=== PATIENT | female | born 1980 | race Caucasian/White ===

== ENCOUNTER → 2020-12-20 13:26 | Outpatient (CLI) | payer OTHER, SELFPAY ==
--- NOTE | 2020-12-20 09:10 | EMB_PTH ---
PATIENT: EVERETT MELVNI LOC: [facility] U#:[id number] AGE/SX: 44/F ROOM: RE12/20/[address]: Dr. Ravindra Altamirano MD : 1980 BED: DIS: SPEC #: [id number] RECD: 12/21/20 09:43 STATUS: OCTAVIO CRYSTAL #: [id number] DAMARI: 12/20/20 09:[address]: Ravindra Altamirano DEPT: SURGICAL PATHOLOGY RECD BY: Augusta Russell Tissues: Endometrium, NOS Procedures: Surgery Specimen Level IV HEADER OPERATION: Endometrial biopsy PRE-OP DIAGNOSIS: Menorrhagia, abnormal uterine bleeding TISSUE SUBMITTED: Endometrial biopsy MICROSCOPIC DIAGNOSIS Endometrium, biopsy: Secretory endometrium. AM:kaylee 12/22/2020 MICROSCOPIC DESCRIPTION Slides are reviewed. GROSS DESCRIPTION Received in fixative is one container labeled with the patient's name and designated endometrial biopsy. The specimen consists of multiple irregular and elongated fragments of whaley tissue that in aggregate measure 2.5 x 2.2 x 0.2 cm. The specimen is totally submitted in one cassette. / AM:kaylee 12/21/20 TC:5 CPT: 92525
== END ==
PROVIDERS: Visit Provider Obstetrics & Gynecology
DX: N92.0 Excessive and frequent menstruation with regular cycle (principal)
CPT/HCPCS: 88305

== ENCOUNTER 2021-01-09 06:02 | Day surgery (SDC) | payer OTHER, SELFPAY ==
[2020-12-28 15:20] LABS: Hematocrit 35.8 % (37-47); Hemoglobin 11.4 g/dL (12.0-15.0); Mean Corp Hgb Conc 31.8 g/dL (32-36); Mean Corpuscular Hgb 27.7 pg (27.0-32.0); Mean Corpuscular Volume 87.1 fL (81-99); Mean Platelet Vol. 9.3 fl (6.2-12.0); Platelet Count 280 K/mm3 (150-450); RBC Distribution Width CV 13.4 % (11.6-14.6); RBC Distribution Width SD 42.6 fl (35.1-43.9); Red Blood Count 4.11 M/mm3 (4.2-5.4); White Blood Count 6.1 K/mm3 (4.4-11.0)
[2020-12-28 15:26] LABS: Prothrombin Time (Protime)PT. 12.6 SECONDS (11.7-14.9)
[2020-12-28 15:27] LABS: Partial Thromboplast Time 30.8 Seconds (24.1-36.2)
[2020-12-28 15:36] LABS: hCG Titer Quant., Serum < 1 mIU/mL (1-3)
--- NOTE | 2021-01-08 10:54 | HP.PCM_ITS ---
History and Physical Date of Admission: 01/09/21 Surgical History and Physical Nancy Sena, a 40 year old female 2 0 0 0 2, presents for HTA, Hysteroscopy and D and C on January 09, 2021 at 7:30. -- Heavy menses -- Menorrhagia/mid cycle spotting which began years ago and now worsening. Nancy claims it started with menses and has been present with menses for yrs. It occurs with menses. Marariea characterizes the quality cramping. Severity is moderate but now worsening; U/S and EMBx ok. MEDICATIONS HISTORY: Patient is also takin. Zoloft 100 mg tablet, 1 qd ALLERGIES: NKDA Illnesses - Anxiety Accidents - None Hospitalizations - Childbirth Review of Systems: GENERAL - Denies fever, or chills SKIN - Denies skin changes EYES - Denies visual changes EARS - Denies difficulty hearing NOSE - Denies nasal congestion or bleeding MOUTH - Denies sore throat or difficulty swallowing NECK - Denies pain or swelling RESPIRATORY - Denies shortness of breath or wheezing CARDIOVASCULAR - Denies palpitations or chest pain GASTROINTESTINAL - Denies nausea, vomiting, diarrhea, constipation GENITOURINARY - Denies dysuria, frequency of urination, incontinence of urine MUSCULOSKELETAL - Denies joint or muscle pain NEUROLOGICAL - Denies localized numbness or weakness PSYCHIATRIC - Denies depression or anxiety ENDOCRINE - Denies heat or cold intolerance, weight loss or gain HEMATO-IMMUNOLOGIC - Denies excesive bleeding with cuts SOCIAL HISTORY: Alcohol Use - wine daily Smoking - Never Diet - Does not eat much meat Lifestyle - Exercise - active and walking Seat Belt Use - always Employer - [employer] 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 Paternal Grandmother: Breast cancer. MENSTRUAL HISTORY: LMP Known?- yesAmount/Duration - 5-6 DAYS, Regularity - Regular, Frequency - 27 days, LMP - 12/26/20, Age Onset Menarche - 10 PAST PREGNANCIES: Total Pregnancies - 2; Full Term Pregnancies - 2; Premature - 0; Abortions, Induced - 0; Abortions, Spontaneous - 0; Ectopics - 0; Multiple Births - 0; Living Children - 2 SURGICAL HISTORY: 1. [place] Teeth extraction 2013 PHYSICAL EXAM BP- 130/80 Sitting, Right arm, regular cuff Weight- 146.78203 lbs Height- 63.5 inch BMI:25.51 CONSTITUTIONAL - NAD, well nourished, and well developed SKIN - No rash, lesions, or ulcers HEENT - Normocephalic, PERRLA, EOMI NECK - no nodes, no nuchal rigidity and thyroid normal size and texture LYMPH NODES - Palpation of lymph nodes in neck and groins within normal limits ABDOMEN - Without hepatosplenomegaly, distention, masses, rebound, or guarding; normal bowel sounds, no hernias EXTREMITIES - No edema or calf tenderness NEUROLOGICAL - Cranial nerves II-XII grossly intact PSYCHIATRIC - A and O to time, place, person, mood and affect External Genitial Vagina - non-tender without lesions Urethra/Urethral Meatus - non-tender Bladder - non-tender Vagina - vaginal odom are pink and moist without loss of rugae and no evidence of atropy Cervix - without cervical motion tenderness and has normal size and features without evident lesions Uterus - 5-6 cm in size, mobile and nontender Adnexa - clear without massess or tenderness ASSESSMENT/PLAN: 1. Premenopausal Menorrhagia Reviewed pelvic u/s results which shows posterior fibroid. Will likely benefit from ablation. EMBx benign. Declines medical treatment. Scheduled for H/S, D and C and HTA on 01/09/21. Discussed procedure and RBAs at length and all questions answered.
--- NOTE | 2021-01-09 | EMB_PTH ---
PATIENT: EVERETT MELVIN LOC: [facility] [place] U[place][id number] AGE/SX: 40/F ROOM: RE01/09/[address]: Dr. Maurice Sousa MD : 1980 BED: DIS: 01/09/2021 SPEC #: [id number] RECD: 01/09/21 11:22 STATUS: OCTAVIO RELety #: [id number] DAMARI: 01/09/21 00:[address]: Maurice Sousa DEPT: SURGICAL PATHOLOGY RECD BY: Rey Loo ENTERED: 01/09/21 11:23 SP TYPE: ENDOM BX/C OTHR DR: NENA Hood Tissues: Endometrium, NOS Procedures: Surgery Specimen Level IV HEADER OPERATION: Hysteroscopy, D & C hydroablation PRE-OP DIAGNOSIS: Heavy menses, menorrhagia TISSUE SUBMITTED: Endometrial curettings MICROSCOPIC DIAGNOSIS Endometrial curettings: Disordered proliferative endometrium to focal simple endometrial hyperplasia without atypia. See comment. JANEL:kaylee 01/10/2021 COMMENT A few of the fragments of polypoid appearance may represent fragments of polyp. Clinical correlation and appropriate follow up are necessary. MICROSCOPIC DESCRIPTION Slides are reviewed. GROSS DESCRIPTION Received in fixative is one container labeled with the patient's name and designated endometrial curettings. The specimen consists of multiple fragments of hemorrhagic soft tissue that in aggregate measure 5 x 3 x 0.6 cm. The entire specimen is submitted in four cassettes. / JANEL:kaylee 01/09/21 TC:5 CPT: 45437
[2021-01-09 06:28] VITALS: BP 111/80; PULSE 79; RESP 14; TEMP 37.3; O2SAT 100; BMI 26.2
[2021-01-09 06:30] LABS: Internal QC Validated? YES +Cl - CLEAR BKGD; Pregnancy, Urine Negative Negative
[2021-01-09] MEDS: Lactated Ringers 1,000 ML 100 ML IV ×2 (06:45→09:03)
--- NOTE | 2021-01-09 07:35 | OP.PCM_ITS ---
Report of Operation Date of Procedure: 01/09/21 Pre-Operative Diagnosis: Menorrhagia Post-Operative Diagnosis: Menorrhagia, Endometrial Polyps Surgery/Procedure Performed:: Diagnostic Hysteroscopy, Dilation and Curettage, Hydrothermal Ablation Description of Surgical Findings:: 8 cm endometrial cavity with a 1-2 cm endometrial polyp present. Also likely 1 to 2 cm fibroid in the uterine cervix not visualized. Cervix high in vagina which would make robotic assisted vaginal hysterectomy necessary should vaginal hysterectomy be desired at some point in the future. Type of Anesthesia:: General - Endotracheal Anesthesiologist: Dillan Chan Specimen's removed: Endometrial curettings Estimated Blood Loss (mL): Minimal Fluids Replaced: Crystalloid Description of Procedure: Surgeon: Maurice Sousa MD, FACOG Indication: This is a 40 year old patient who has been having problems with extremely heavy menses. Conservative measures have not been helpful. Endometrial sampling was benign and pelvic ultrasound showed that ablation may be helpful. Pt has been counseled regarding the risks, benefits and alternatives of this procedure and all questions answered. She understands that only about half of patients will have amenorrhea after this procedure. Procedure: Patient taken to the operating room where after induction of general anesthesia the patient was prepped and draped in the usual sterile fashion. Bladder was drained of urine with a catheter. Anterior cervix grasped and cervix was dilated to about 17 Palestinian size. Hysteroscopic hydrothermal ablation (HTA) unit was place in the cervix and the above findings were noted. HTA unit was removed and the uterus was gently curretted removing all contents. An HTA ablation cycle was then carried out at about 90 degrees Centigrade for 10 minutes with virtually no fluid loss during the procedure. After an appropriate cool down the HTA unit was removed with minimal bleeding noted. The patient tolerated the procedure well and was taken to the recovery room in satisfactory condition. Sponge, instruments and needle counts were all correct. There were no apparent complications of the surgery. [ ] 2 gms IV was given prior to the procedure. Estimated Blood Loss: Minimal Specimen to Pathology: Endometrial Curettings Grafts/Implants Used: None - Complications None - Admit VTE Documentation VTE Present on Admission: Yes VTE Mechan Device Prophylaxis: SCD's
[2021-01-09] MEDS: Cefotetan 2 GM in 0.9% NS 100 ML IV (07:36)
--- NOTE | 2021-01-09 07:38 | DCINST_ITS ---
Discharge Diet: No Restrictions Discharge Activity: Return to Normal Activity, May Shower, May Take a Tub Bath - in 2 weeks. May resume sexual activity in: 4 weeks Call your doctor if you observe: Fever of 101 or Higher, Inability to urinate, Inability to have a bowel movement, Using more than one pad per hour Allergies/Adverse Reactions: Allergies No Known Allergies Allergy (Verified 01/02/21 14:21) Medications to take at Discharge Ibuprofen 600 mg PO PRN PRN 01/02/21 Sertraline HCl [Zoloft] 100 mg PO DAILY 01/02/21 Cetirizine HCl [Zyrtec] 10 mg PO DAILY PRN PRN 01/09/21 Oxycodone [Oxyir] 5 mg PO Q6H PRN PRN 7 Days #5 tablet 01/09/21 The following prescriptions were given: Oxycodone [Oxyir] 5 mg PO Q6H PRN PRN 7 Days #5 tablet PRN Reason: Pain Score 6-10 Transmission Status: Sent to [facility] Primary Care Physician: Prema Arambula PA [Primary Care Provider] - Test Results: Test results from this visit will be discussed in further detail at your follow- up appointment, if applicable. Please Follow Up With: Maurice Sousa MD When: 3-4 weeks
[2021-01-09 08:34] VITALS: BP 111/80; BP 121/81; PULSE 79; RESP 16; TEMP 37.2; O2SAT 99
[2021-01-09 08:45] VITALS: BP 111/80; BP 117/74; PULSE 80; RESP 16; O2SAT 100
[2021-01-09 09:00] VITALS: BP 111/80; BP 119/78; PULSE 74; RESP 18; TEMP 36.7; O2SAT 100
[2021-01-09 09:25] VITALS: BP 111/80
[2021-01-09] MEDS: Acetaminophen 500 MG Tablet 1000 MG PO (09:33)
[2021-01-09 10:05] VITALS: BP 111/80; BP 113/76; PULSE 80; RESP 16; TEMP 36.5; O2SAT 100
== END 2021-01-09 10:22 | disposition home or self-care (01) ==
LOC: SDC 06:03 → AC 06:04
PROVIDERS: PCP Physician Assistant; Referring Provider Obstetrics & Gynecology; Visit Provider Obstetrics & Gynecology
PROC: 0U5B8ZZ Destruction of Endometrium, Via Natural or Artificial Opening Endoscopic (ICD-10-PCS; CPT 58563; principal; 2021-01-09 07:15)
DX: N92.4 Excessive bleeding in the premenopausal period (principal); N84.0 Polyp of corpus uteri; F41.9 Anxiety disorder, unspecified; Z79.899 Other long term (current) drug therapy; G25.81 Restless legs syndrome
CPT/HCPCS: 00952; 58563; 36415; 81025; 84702; 85027; 85610; 85730; 86850; 86900; 86901; 87426; 88305; C9803; J7120; J2405

== ENCOUNTER 2024-07-22 08:00 | Day surgery (SDC) | payer OTHER, SELFPAY ==
[2024-07-22] VITALS (7 sets, daily range): BP systolic 92–115; BP diastolic 63–78; PULSE 68–75; RESP 16; TEMP 36.3–36.6; O2SAT 97–100; BMI 26.2
--- NOTE | 2024-07-22 08:31 | PRE.ANES_ITS ---
ASA Classification* ASA Classification ASA Classification: 2 Assessment & Plan Anesthesia* Anesthesia Assessment Anesthesia Assessment: Discussed sedation and/or anesthesia options, risks, benefits, and alternatives with patient/parents/legal guardian/POA. Questions invited. The patient/parents/legal guardian/POA seems to understand and agrees to proceed with anesthesia plan. Reviewed the physical assessment, medical history, allergy history and patient home medications list prior to surgery/procedure/anesthetic and documented any changes. Performed airway and anesthesia risk assessments. Anesthesia Type Anesthesia Type: MAC Anesthesia Focused Assessment* Airway Assessment Mouth opens: >3 cm Mallampati Score: II Focused Labs Anesthesia Preop lab: CBC WBC 6.1 K/mm3 (4.4-11.0) 12/28/20 14:52 RBC 4.11 M/mm3 (4.2-5.4) L 12/28/20 14:52 Hgb 11.4 g/dL (12.0-15.0) L 12/28/20 14:52 Hct 35.8 % (37-47) L 12/28/20 14:52 Plt Count 280 K/mm3 (150-450) 12/28/20 14:52 CHEMISTRY COAG PT 12.6 SECONDS (11.7-14.9) 12/28/20 14:52 HCG, Quant < 1 mIU/mL (1-3) 12/28/20 14:52 Urine Test Negative Negative 01/09/21 06:25 Pre-Assessment Diagnosis/Proposed Procedure Planned Operative Procedure(s): COLONOSCOPY Anesthesia History 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 When Was Last Pacemaker Check QUESTION #4 FULL TEXT: You/Your Family Experience fever (hyperthermia) with Anesthesia Last Oral Intake Last Oral intake: Last Oral Intake NPO since Meds taken in AM with sips of water? 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 Female Yes 07/20/24 13:31 HX of Motion Sickness No 07/20/24 13:31 HX of N/V After Surgery No 07/20/24 13:31 Non-Smoker Yes 07/20/24 13:31 Duration of Surgery greater No 07/20/24 13:31 than 60 minutes Number of Risk Factors 2 07/20/24 13:31 PONV Score Moderate Risk 07/20/24 13:31 Height & Weight Height & Weight: Anesthesia: Height & Weight Height 5 ft 3.5 in 06/11/24 13:46 Respiratory Assessment Respiratory Assessment - assistant professor of archaeology: Respiratory Tract Infection Hx - 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 Has anyone observed you stop No 07/20/24 13:31 breathing during sleep? STOP Results Negative 07/20/24 13:31 QUESTION #5 FULL TEXT : Do you snore loudly (louder than talking or can be heard through closed doors)? 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 Specify any problems Hx of Preganancy in last 3 No 07/20/24 13:31 Months Nurse Filling Out Transfusion [email or web address] 07/20/24 13:31 & Questions: Date: 07/20/24 07/20/24 13:31 Time: 13:36 07/20/24 13:31 Patient unable to answer at this time (ie. confused, unrespo /Reproduction History /Reproductive History - assistant professor of archaeology: /Reproductive Hx- assistant professor of archaeology Hx Now No 07/20/24 13:31 Gestational Age (in weeks): EDC: Hx Hx Para Hx Section SAB No 07/20/24 13:31 PFSH Medical History Wears glasses Anemia Non-smoker Irritable bowel syndrome (IBS) Anxiety Lactose intolerance Home Medications ?Medication ?Instructions ?Recorded ?Last Taken ?Type ibuprofen 600 mg tablet 600 mg PO PRN PRN Pain 1-10 Or 01/02/21 Unknown History Fever sertraline 100 mg tablet 100 mg PO DAILY 01/02/21 Unknown History Allergy/AdvReac Type Severity Reaction Status Date / Time No Known Allergies Allergy Verified 07/20/24 13:30 Family History Father CVA (cerebral vascular accident) CAD (coronary artery disease) Hypertension Mother Pre-diabetes Anemia Grandmother Breast cancer Surgical History History of endometrial ablation Social History household members: spouse current occupational status: employed 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
[2024-07-22 08:35] LABS: Internal QC Validated? YES +Cl - CLEAR BKGD; Pregnancy, Urine Negative Negative
--- NOTE | 2024-07-22 09:33 | PCM.HP.STD ---
[facility] - General General Date of Admission: 07/22/24 Date of Service: 07/22/24 Chief Complaint: Screening colonoscopy [facility] Narrative EVERETT GREENE, is a 43 F who presents today for screening colonoscopy. She is never had a colonoscopy in the past. She is not having abdominal pain. She denied any chest pain or shortness of breath. The only med she takes on a daily basis is sertraline and ibuprofen. [facility] Medical History Wears glasses Anemia Non-smoker Irritable bowel syndrome (IBS) Anxiety Lactose intolerance Home Medications ?Medication ?Instructions ?Recorded ?Last Taken ?Type ibuprofen 600 mg tablet 600 mg PO PRN PRN Pain 1-10 Or 01/02/21 07/21/24 History Fever sertraline 100 mg tablet 100 mg PO DAILY 01/02/21 07/21/24 History Allergy/AdvReac Type Severity Reaction Status Date / Time No Known Allergies Allergy Verified 07/22/24 08:36 Family History Father CVA (cerebral vascular accident) CAD (coronary artery disease) Hypertension Mother Pre-diabetes Anemia Grandmother Breast cancer Surgical History History of endometrial ablation Social History household members: spouse current occupational status: employed 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, 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 Smoking Status: Never smoker alcohol intake: current alcohol intake frequency: a few times a week substance use type: does not use caffeine: Yes (1-2 cups a day) ROS Review of Systems ROS Unobtainable: other Constitutional Constitutional: Denies fatigue, fever(s), poor appetite, weight gain or weight loss ENT HEENT: Denies mouth lesions Cardiovascular Cardiovascular: Denies abdominal bloating, abdominal edema or abdominal pain Respiratory/Chest Respiratory/Chest: Denies change in mental status, change in phlegm color, chest congestion or chest tightness Gastrointestinal Gastrointestinal: Denies belching, bloating, change in bowel habits, change in stool character, chewing difficulty, coffee ground emesis, constipation, cramping, diarrhea, dyspepsia, dysphagia, early satiety, excessive flatus, fecal incontinence, heartburn, hematemesis, hematochezia, hemorrhoids, loose stools, melena, nausea, odynophagia, rectal bleeding, tenesmus, vomiting or weight changes Genitourinary Genitourinary: Denies abdominal discomfort, burning urination or itching Musculoskeletal Musculoskeletal: Reports as per HPI; Denies muscle weakness or myalgias Integumentary Integumentary: Denies jaundice Neurologic Neurologic: Denies lack of coordination or weakness Psychiatric Psychiatric: Denies confusion, depression, memory loss, mood swings, paranoia or suicidal ideation Endocrine Endocrinology: Denies systems reviewed and no addt'l complaints, except as documented Hematologic/Lymphatic Hematologic/Lymphatic: Denies anemia, easy bleeding, easy bruising or lymphadenopathy Allergic/Immunologic Allergic/Immunologic: Denies systems reviewed and no addt'l complaints, except as documented Vital Signs Vital Signs Vital Signs: 07/22/24 08:37 07/22/24 08:37 Temperature 97.4 F L Temperature Source Temporal Pulse Rate 75 Respiratory Rate 16 Respiratory Pattern Normal Blood Pressure 115/78 Blood Pressure Mean 90 Blood Pressure Source Monitor Blood Pressure Position Semi-Fowlers Blood Pressure Location Left Arm Pulse Ox 100 Oxygen Delivery Method Room Air Weight Weight: 147 lb 11.355 oz Body Mass Index (BMI) 26.2 Physical Exam Const alert General Appearance: cooperative Orientation / Consciousness: oriented to person HEENT hearing grossly normal bilaterally Head and Scalp: normal to inspection Face and Sinus: face symmetric Nose: external nose normal Mouth: oral and palatal mucosa normal Eyes conjunctivae normal General Eye: normal appearance of both eyes Neck full ROM General: normal visual inspection Lymph Lymphatic: no lymphadenopathy noted Chest inspection of chest normal and palpation of chest normal Chest: symmetrical chest wall rise Resp normal respiratory effort Effort and Inspection: able to speak in complete sentences Cardio regular rate GI non-distended Percussion: normal to percussion Rectal Exam: deferred Neuro Speech: speech normal Gait (Neuro): normal gait Results Lab / Micro Data Labs: Laboratory Results - last 24 hr 07/22/24 08:27: Urine Test Negative Assessment & Plan Assessment/Plan (1) Encounter for screening for malignant neoplasm of colon: PLAN: She was explained alternatives, risk, benefits include not withstanding bleeding, infection, sepsis, perforation, need for return to . She will have an ASA of 3.
--- NOTE | 2024-07-22 10:05 | PCM.POST.ANE ---
Anesthesia: Postop Eval I Current Vital Signs Temperature: 97.7 F Pulse Rate: 74 Blood Pressure: 98/67 Respiratory Rate: 16 Pulse Ox: 100 Oxygen Delivery Method: Room Air Assessment Airway patent: Yes Spontaneous unlabored respirations: Yes Mental status: Asleep nausea: No Vomiting: No Anesthesia Complication: No Fluid Hydration Crystalloid volume administer (ml): 30 Total IV fluid infused: 30 Progress Note Anesthesia document: Postop Eval 1 completed: Yes
--- NOTE | 2024-07-22 17:38 | PCM.POSTANE2 ---
Anesthesia Postop Eval I Sum Postop Eval Completion status Anesthesia document: Postop Eval 1 completed: Yes Anesthesia Postop Eval I Summary Anesthesia Postop Eval I Summary: Anesthesia Postop Eval I: Assessment Summary Airway patent Yes 07/22/24 10:05 [email or web address] Spontaneous unlabored Yes 07/22/24 10:05 [email or web address] respirations Mental status Asleep 07/22/24 10:05 [email or web address] nausea No 07/22/24 10:05 [email or web address] Vomiting No 07/22/24 10:05 [email or web address] Anesthesia Postop Eval I: Fluid Summary Crystalloid volume administer 30 07/22/24 10:05 [email or web address] (ml) Colloids volume administered ( ml) Blood Product volume administered (ml) Total IV fluid infused 30 07/22/24 10:05 [email or web address] Anesthesia Postop Eval I: Summary Notes Anesthesia Complication No 07/22/24 10:05 [email or web address] Anesthesia Complication Comment: Post-operative progress note Anesthesia: Postop Eval II Evaluation Mental status: Awake and Calm Pain Level: 0 nausea: No Vomiting: No Complications Anesthesia Complication: No
--- NOTE | 2024-07-27 15:26 | OP.COLON_ITS ---
Patient Name: Nancy Sena Procedure Date: 07/22/2024 9:31 AM Date of : 1980 Age: 43 Procedure: Colonoscopy Indications: Screening for colorectal malignant neoplasm Providers: Noé Mercedes DO Referring MD: Prema Arambula Medicines: Monitored Anesthesia Care Patient Profile: This is a 43 year old female. Refer to note in patient chart for documentation of history and physical. Last Colonoscopy: none. The patient's first colonoscopy is today. Complications: No immediate complications. Procedure: Pre-Anesthesia Assessment: - Prior to the procedure, a History and Physical was performed, and patient medications and allergies were reviewed. The patient is competent. The risks and benefits of the procedure and the sedation options and risks were discussed with the patient. All questions were answered and informed consent was obtained. Patient identification and proposed procedure were verified by the physician in the pre-procedure area. Mental Status Examination: alert and oriented. Airway Examination: normal oropharyngeal airway and neck mobility. Respiratory Examination: clear to auscultation. CV Examination: normal. Prophylactic Antibiotics: The patient does not require prophylactic antibiotics. Prior Anticoagulants: The patient has taken no anticoagulant or antiplatelet agents except for NSAID medication. ASA Grade Assessment: II - A patient with mild systemic disease. After reviewing the risks and benefits, the patient was deemed in satisfactory condition to undergo the procedure. The anesthesia plan was to use monitored anesthesia care (MAC). Immediately prior to administration of medications, the patient was re-assessed for adequacy to receive sedatives. The heart rate, respiratory rate, oxygen saturations, blood pressure, adequacy of pulmonary ventilation, and response to care were monitored throughout the procedure. The physical status of the patient was re-assessed after the procedure. After I obtained informed consent, the scope was passed under direct vision. Throughout the procedure, the patient's blood pressure, pulse, and oxygen saturations were monitored continuously. The pediatric colonoscope was introduced through the anus and advanced to the terminal ileum. The colonoscopy was performed without difficulty. The patient tolerated the procedure well. The quality of the bowel preparation was adequate. The ileocecal valve, appendiceal orifice, and rectum were photographed. Scope In: 9:38:59 AM Scope Withdrawal Time 0 hours 7 minutes 35 seconds Scope Out: 9:56:06 AM Total Procedure Duration Time 0 hours 17 minutes 7 seconds Findings: The perianal and digital rectal examinations were normal. The entire examined colon appeared normal on direct and retroflexion views. Impression: - The entire examined colon is normal on direct and retroflexion views. - No specimens collected. Recommendation: - Discharge patient to home. - Resume previous diet. - Continue present medications. - Repeat colonoscopy in 10 years for screening purposes. Procedure Code(s): --- Professional --- G0121, Colorectal cancer screening; colonoscopy on individual not meeting criteria for high risk CPT copyright 2021 [employer]. All rights reserved. 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 Noé Mercedes DO 07/22/2024 10:01:29 AM This report has been signed electronically. Number of Addenda: 0 Note Initiated On: 07/22/2024 9:31 AM
--- NOTE | 2024-07-27 15:26 | OP.CCLET_ITS ---
07/22/2024 Prema Arambula Re : Colonoscopy procedure for Nancy Sena Dear Ralf This procedure was performed on Monday, July 22, 2024. My impressions and recommendations are as follows: Impressions : - The entire examined colon is normal on direct and retroflexion views. - No specimens collected. Recommendations : - Discharge patient to home. - Resume previous diet. - Continue present medications. - Repeat colonoscopy in 10 years for screening purposes. My findings are described in the full procedure note, which is enclosed. If I can be of further assistance, please feel free to contact me at . Sincerely, Noé Mercedes, 07/22/2024 10:01:29 AM This report has been signed electronically.
== END 2024-07-22 23:00 | disposition home or self-care (01) ==
LOC: EN 12-10 09:58
PROVIDERS: Anesthesiology; PCP Physician Assistant; Referring Provider Physician Assistant; Visit Provider Internal Medicine Gastroenterology
PROC: 0DJD8ZZ Inspection of Lower Intestinal Tract, Via Natural or Artificial Opening Endoscopic (ICD-10-PCS; CPT 45378; principal; 2024-07-22 08:55)
DX: Z12.11 Encounter for screening for malignant neoplasm of colon (principal); F41.9 Anxiety disorder, unspecified; Z79.899 Other long term (current) drug therapy
CPT/HCPCS: 45378; 81025; A4216; J2405